=== PATIENT | female | born 1940 | race Caucasian/White ===

== ENCOUNTER 2023-08-17 05:06 | Inpatient (IN) | payer MEDICARE ==
[~2023-08-17] VITALS: Ht 142.2 cm; Wt 52.2 kg
[2023-08-17 05:27] LABS: BASOPHILS # (AUTO) 0.1 K/UL (0.0-0.2); BASOPHILS % (AUTO) 0.8 % (0.0-2.0); EOSINOPHILS # (AUTO) 0.4 K/uL (0.0-0.7); EOSINOPHILS % (AUTO) 5.4 % (0.0-7.0); HEMATOCRIT 38.4 % (31.2-41.9); HEMOGLOBIN 12.6 g/dL (10.9-14.3); LYMPHOCYTES % (AUTO) 29.9 % (20.5-51.5); MEAN CORPUSCULAR HEMOGLOBIN 30.3 uug (24.7-32.8); MEAN CORPUSCULAR HGB CONC 33 g/dL (32.3-35.6); MEAN CORPUSCULAR VOLUME 92.7 fL (75.5-95.3); MONOCYTES # (AUTO) 0.5 K/uL (0.1-1.30); MONOCYTES % (AUTO) 7.7 % (0.0-11.0); NEUTROPHILS # (AUTO) 3.8 K/uL (1.8-8.9); NEUTROPHILS % (AUTO) 56.2 % (38.5-71.5); PLATELET COUNT (AUTO) 221 K/uL (179-408); RED BLOOD CELL COUNT(AUTO) 4.14 MIL/uL (3.63-4.92); RED CELL DISTRIBUTION WIDTH 14.6 % (12.3-17.7); WHITE BLOOD COUNT (AUTO) 6.8 K/uL (3.8-11.8)
[2023-08-17 05:28] LABS: DIFFERENTIAL COMMENT 1
[2023-08-17 05:35] LABS: CALCIUM 9.6 mg/dL (8.5-10.1); CARBON DIOXIDE 26 mmol/L (21-32); CHLORIDE 107 mmol/L (98-107); CREATININE 0.9 mg/dL (0.6-1.3); GLUCOSE 113 mg/dL (74-106); SODIUM SERUM 143 mmol/L (136-145); UREA NITROGEN, BLOOD 46 mg/dL (7-18)
[2023-08-17 05:50] LABS: ALANINE AMINOTRANSFERASE 19 U/L (14-59); ALBUMIN 3.7 g/dL (3.4-5.0); ALKALINE PHOSPHATASE 77 U/L (50-136); ASPARTATE AMINOTRANSFERASE 13 U/L (15-37); BILIRUBIN,TOTAL 0.3 mg/dL (0.2-1.0); MAGNESIUM 2.2 mg/dL (1.8-2.4); NT-PRO BNP 524 pg/mL (0-125); TOTAL PROTEIN, SERUM 6.8 g/dL (6.4-8.2)
[2023-08-17] MEDS ORDERED: NITROGLYCERIN 0.4 MG/TAB BOTTLE SL ONE (06:00)
[2023-08-17] MEDS ORDERED: ACETAMINOPHEN 325 MG TABLET PO PRN (06:00)
[2023-08-17] MEDS ORDERED: MAGNESIUM HYDROXIDE 30 ML LIQUID UDC PO PRN (06:00)
[2023-08-17] MEDS ORDERED: ONDANSETRON 4 MG/2 ML VIAL IV PRN (06:00)
[2023-08-17] MEDS ORDERED: NORMAL SALINE FLUSH 10 ML DISP.SYRIN IV SCH (06:00)
[2023-08-17] MEDS ORDERED: MORPHINE SULFATE 4 MG/1 ML DISP.SYRIN IV PRN (06:00)
[2023-08-17] MEDS ORDERED: REMEDY ESSENTIAL ZINC PASTE 113 GM TP PRN (06:00)
[2023-08-17 07:43] LABS: THYROID STIMULATING HORMONE 2.127 mIU/mL (0.358-3.740)
[2023-08-17] MEDS ORDERED: AMLO-212 PO (08:30)
[2023-08-17] MEDS ORDERED: ATOR20TA PO (08:30)
[2023-08-17] MEDS ORDERED: METO25TA6 PO (08:30)
[2023-08-17] MEDS ORDERED: VALS320T2 PO (08:30)
[2023-08-17] MEDS ORDERED: PANTOPRAZOLE SODIUM 40 MG VIAL IV SCH (09:00)
[2023-08-17] MEDS: ASPIRIN 81 MG TAB.CHEW PO SCH (09:54)
[2023-08-17 10:00] VITALS: BP 134/38; TEMP 97.7; O2SAT 95
[2023-08-17] MEDS: VALSARTAN 160 MG TABLET PO SCH (14:40)
[2023-08-17] MEDS: METOPROLOL TARTRATE 25 MG TABLET PO SCH ×2 (14:41→17:00)
[2023-08-17] MEDS: AMLODIPINE 5 MG TABLET PO SCH (14:41)
[2023-08-17 16:00] VITALS: BP 146/50; TEMP 98.8; O2SAT 94
[2023-08-17 20:35] VITALS: BP 141/49; TEMP 98.3; O2SAT 95
[2023-08-17] MEDS: ATORVASTATIN 10 MG TABLET PO SCH (21:17)
[2023-08-17] MEDS: MELATONIN 3 MG TABLET PO PRN (21:18)
[2023-08-18 00:48] VITALS: BP 130/41; TEMP 98.5; O2SAT 63
[2023-08-18 06:52] VITALS: BP 124/41; TEMP 98.2; O2SAT 95
[2023-08-18] MEDS: PANTOPRAZOLE SODIUM 40 MG TABLET.DR PO SCH (07:04)
[2023-08-18 08:02] LABS: BASOPHILS # (AUTO) 0.1 K/UL (0.0-0.2); EOSINOPHILS # (AUTO) 0.2 K/uL (0.0-0.7); EOSINOPHILS % (AUTO) 3.5 % (0.0-7.0); HEMATOCRIT 37.7 % (31.2-41.9); HEMOGLOBIN 12.6 g/dL (10.9-14.3); LYMPHOCYTES # (AUTO) 1.4 K/uL (0.8-4.8); MEAN CORPUSCULAR HEMOGLOBIN 30.5 uug (24.7-32.8); MEAN CORPUSCULAR HGB CONC 33 g/dL (32.3-35.6); MEAN CORPUSCULAR VOLUME 91.6 fL (75.5-95.3); MONOCYTES # (AUTO) 0.7 K/uL (0.1-1.30); MONOCYTES % (AUTO) 12.4 % (0.0-11.0); NEUTROPHILS # (AUTO) 3.4 K/uL (1.8-8.9); NEUTROPHILS % (AUTO) 59.1 % (38.5-71.5); PLATELET COUNT (AUTO) 225 K/uL (179-408); RED BLOOD CELL COUNT(AUTO) 4.12 MIL/uL (3.63-4.92); RED CELL DISTRIBUTION WIDTH 14.5 % (12.3-17.7); WHITE BLOOD COUNT (AUTO) 5.8 K/uL (3.8-11.8)
[2023-08-18 08:35] LABS: DIFFERENTIAL COMMENT 1
[2023-08-18 08:36] LABS: CALCIUM 9.3 mg/dL (8.5-10.1); CARBON DIOXIDE 24 mmol/L (21-32); CHLORIDE 106 mmol/L (98-107); GLUCOSE 104 mg/dL (74-106); MAGNESIUM 2.2 mg/dL (1.8-2.4); PHOSPHOROUS 3.4 mg/dL (2.5-4.9); SODIUM SERUM 141 mmol/L (136-145); UREA NITROGEN, BLOOD 26 mg/dL (7-18)
[2023-08-18] MEDS: ENOXAPARIN SODIUM 30 MG/0.3 ML DISP.SYRIN SQ SCH ×2 (09:00→09:43)
[2023-08-18] MEDS: ASPIRIN 81 MG TAB.CHEW PO SCH (09:00)
[2023-08-18 09:26] VITALS: BP 142/36; TEMP 97.5; O2SAT 95
[2023-08-18] MEDS: VALSARTAN 160 MG TABLET PO SCH (09:42)
[2023-08-18] MEDS: METOPROLOL TARTRATE 25 MG TABLET PO SCH ×2 (09:43→17:03)
[2023-08-18] MEDS: AMLODIPINE 5 MG TABLET PO SCH (09:43)
[2023-08-18 15:45] VITALS: BP 151/44; TEMP 97.4; O2SAT 98
[2023-08-18 20:00] VITALS: BP 146/40; TEMP 98.2; O2SAT 93
[2023-08-18] MEDS: ATORVASTATIN 10 MG TABLET PO SCH (20:14)
[2023-08-19] MEDS: MELATONIN 3 MG TABLET PO PRN (01:23)
[2023-08-19] MEDS: PANTOPRAZOLE SODIUM 40 MG TABLET.DR PO SCH (07:16)
[2023-08-19] MEDS: ENOXAPARIN SODIUM 30 MG/0.3 ML DISP.SYRIN SQ SCH (09:00)
[2023-08-19] MEDS: ASPIRIN 81 MG TAB.CHEW PO SCH (09:39)
[2023-08-19 09:45] VITALS: BP 155/49
[2023-08-19] MEDS: AMLODIPINE 5 MG TABLET PO SCH (09:45)
[2023-08-19] MEDS: VALSARTAN 160 MG TABLET PO SCH (09:45)
[2023-08-19] MEDS: METOPROLOL TARTRATE 25 MG TABLET PO SCH (09:45)
== END 2023-08-19 13:30 | disposition home or self-care (01) | DRG 311 ==
LOC: ER 05:09 → MEDSURG3 08:37 → TELE3 09:11
PROVIDERS: ADMIT Nurse Practitioner Acute Care; ATTEND Nurse Practitioner Acute Care
DX: I24.9 Acute ischemic heart disease, unspecified (principal); I10 Essential (primary) hypertension; Z85.3 Personal history of malignant neoplasm of breast; Z90.13 Acquired absence of bilateral breasts and nipples; Z79.899 Other long term (current) drug therapy; Z88.6 Allergy status to analgesic agent; R93.1 Abnormal findings on diagnostic imaging of heart and coronary circulation
CPT/HCPCS: 36415; 71045; 83735; 84100; 84443; 84484; 85025; 93005; 93307; C9113; G0378; J1650; J3490